=== PATIENT | male | born 1985 | race Caucasian/White ===

== ENCOUNTER → 2024-11-04 09:22 | Outpatient (CLI) | payer OTHER, SELFPAY ==
--- NOTE | 2024-11-04 09:29 | DI.RAD.S_ITS ---
PROCEDURE: XR LUMBAR SPINE 2-3V INDICATIONS: back pain TECHNIQUE: Three views of the lumbar spine were acquired. COMPARISON: None. FINDINGS: Bones: Five [id number] vertebrae are present. Trace multilevel retrolisthesis and mild multilevel disc height loss. Mild facet arthropathy L5-S1. No vertebral body compression fractures. No suspicious bony lesions. Soft tissues: Overlying bowel gas pattern is normal. No suspicious soft tissue calcifications. IMPRESSION: Mild multilevel spondylosis and spondylolisthesis. Dictated by: Lindsay Ellis M.D. on 11/04/2024 at 14:48 Approved by: Lindsay Ellis M.D. on 11/04/2024 at 14:49
== END ==
PROVIDERS: Referring Provider Chiropractor; Visit Provider Chiropractor
DX: M47.817 Spondylosis without myelopathy or radiculopathy, lumbosacral region (principal); M54.50 Low back pain, unspecified
CPT/HCPCS: 72100